=== PATIENT | female | born 1940 | race Caucasian/White ===

== ENCOUNTER 2017-01-12 17:28 | Emergency (ER) | payer MEDICARE, BC ==
[~2017-01-12] VITALS: Ht 170.2 cm; Wt 72.0 kg
[~2017-01-12 17:28] MED LIST: ATOR10TA PO; LEVO88TA4 PO; METO25TA35 PO; METO50TA4 PO; POTA10CA PO
[2017-01-12] MEDS ORDERED: SODIUM CHLORIDE 0.9% 1,000 ML IV ONE (17:37)
[2017-01-12] MEDS ORDERED: METO25TA91 PO (17:56)
[2017-01-12] MEDS ORDERED: IBUP800T PO (17:56)
[2017-01-12] MEDS ORDERED: PIME30CR2 TP (17:56)
[2017-01-12] MEDS ORDERED: UBID100C24 PO (17:56)
[2017-01-12] MEDS ORDERED: METO50TA82 PO (17:56)
[2017-01-12] MEDS ORDERED: ASPI-496 PO (17:56)
[2017-01-12] MEDS ORDERED: CYAN25007 PO (17:56)
[2017-01-12] MEDS ORDERED: FAMOTIDINE 20 MG/2 ML IVP ONE (18:00)
[2017-01-12] MEDS ORDERED: SODIUM CHLORIDE FLUSH 10ML SYR IVF ONE (18:00)
[2017-01-12] MEDS ORDERED: ONDANSETRON 2MG/ML, 2ML IVPush ONE (18:00)
[2017-01-12] MEDS ORDERED: SODIUM CHLORIDE 0.9% 1,000ML IVBOLUS ONE (18:00)
[2017-01-12 18:05] LABS: HEMOGLOBIN 14.6 g/dL (11.7-16.4)
[2017-01-12 18:17] LABS: BLOOD UREA NITROGEN 19 mg/dL (7-18)
[2017-01-12 18:21] LABS: ASPARTATE AMINO TRANSFERASE 16 U/L (15-37)
[2017-01-12] MEDS ORDERED: SODIUM CHLORIDE 0.9%, 500ML IVBOLUS ONE (18:30)
[2017-01-12] MEDS ORDERED: CLINDAMYCIN PMX 600MG/50ML 50 ML IV ONE (18:30)
[2017-01-12] MEDS ORDERED: ONDANSETRON 2MG/ML, 2ML ONE (18:44)
[2017-01-12] MEDS ORDERED: FAMOTIDINE 20 MG/2 ML ONE (18:44)
[2017-01-12] MEDS ORDERED: CLINDAMYCIN PMX 600MG/50ML 50 ML ONE (19:17)
[2017-01-12 20:38] LABS: IS PT STATUS REG ER OR PRE ER? YES
[2017-01-12 21:48] VITALS: BP 112/46
== END 2017-01-12 21:50 | disposition home or self-care (01) ==
LOC: ED 19:47
DX: T36.0X5A Adverse effect of penicillins, initial encounter (principal); E86.0 Dehydration; R11.2 Nausea with vomiting, unspecified; E03.9 Hypothyroidism, unspecified; Z90.710 Acquired absence of both cervix and uterus
CPT/HCPCS: 36415; 80053; 83605; 83690; 84145; 84484; 85025; 87040; 93005; 96374; 96375; 99285; J2405; J7030; J7040; S0028

== ENCOUNTER 2018-05-12 10:41 | Day surgery (SDC) | payer MEDICARE, BC ==
[~2018-05-12] VITALS: Ht 172.7 cm; Wt 63.6 kg
[~2018-05-12 10:41] MED LIST changes: +ASPI-496 PO; +CYAN25007 PO; +IBUP-1223 PO; +METO25TA91 PO; +METO50TA82 PO; +PIME30CR2 TP; +UBID100C24 PO
[2018-05-12] MEDS ORDERED: SODIUM CHLORIDE 0.9% 1,000 ML IV SCH (11:03)
[2018-05-12 11:07] VITALS: BP 160/52
[2018-05-12] MEDS ORDERED: LIDOCAINE 2% 100MG/5ML SYRINGE ONE (12:02)
[2018-05-12] MEDS ORDERED: LIDOCAINE-MPF 2% ,5ML ONE (12:05)
== END 2018-05-12 12:36 ==
LOC: CACL 10:41
PROVIDERS: ATTEND Internal Medicine Cardiovascular Disease
DX: Z45.09 Encounter for adjustment and management of other cardiac device (principal); I10 Essential (primary) hypertension; I73.9 Peripheral vascular disease, unspecified; E78.00 Pure hypercholesterolemia, unspecified; Z79.82 Long term (current) use of aspirin; Z88.1 Allergy status to other antibiotic agents
CPT/HCPCS: 33284; J3490

== ENCOUNTER 2021-07-01 12:14 | Outpatient (CLI) | payer MEDICARE, BC ==
[2021-07-01 12:44] LABS: ALANINE AMINOTRANSFERASE 31 U/L (12-78); ALBUMIN 3.6 g/dL (3.4-5.0); ANION GAP 3 mmol/L (5-15); CALCIUM 9.5 mg/dL (8.5-10.1); CHLORIDE 108 mmol/L (98-107); CHOLESTEROL, TOTAL 166 mg/dL (140-239); CREATININE 0.79 mg/dL (0.55-1.02)
[2021-07-01 12:46] LABS: ALKALINE PHOSPHATASE 81 U/L (45-117); BILIRUBIN,TOTAL 0.8 mg/dL (0.2-1.0); CHOL/HDL RATIO 2.1; HDL CHOL % 48 % (28-40); HDL CHOLESTEROL (DIRECT) 80 mg/dL (40-60); LDL CHOLESTEROL,CALCULATED 73 mg/dL (54-169); LDL/HDL RATIO 0.9 (0.5-3.0); TOTAL PROTEIN 6.8 g/dL (6.4-8.2); TRIGLYCERIDES 65 mg/dL (50-200); VLDL CHOLESTEROL 13 mg/dL (0-25)
== END 2021-07-01 23:59 | disposition home or self-care (01) ==
LOC: LAB 12:14
PROVIDERS: ATTEND Internal Medicine
DX: I10 Essential (primary) hypertension (principal); E78.5 Hyperlipidemia, unspecified; I48.91 Unspecified atrial fibrillation; I70.0 Atherosclerosis of aorta; R07.9 Chest pain, unspecified
CPT/HCPCS: 36415; 80053; 80061